=== PATIENT | male | born 1965 | race Caucasian/White ===

== ENCOUNTER 2017-04-06 16:46 | Inpatient (IN) | payer BC ==
[~2017-04-06] VITALS: Ht 167.6 cm; Wt 92.5 kg
[~2017-04-06 16:46] MED LIST: AMA1; AMA1 PO; BACDS PO; BG MC; GLU500 PO; LOP600 PO; LOR PO; MOT600 PO; MOT800 PO; ZES10 PO
[2017-04-06 17:53] LABS: BASOPHIL % 0.3 % (0-2); PLATELET COUNT 201 x10^3mcL (130-400); RED CELL DISTRIBUTION WIDTH 13.7 % (11.5-14.5)
[2017-04-06 17:59] LABS: CARBON DIOXIDE 27.3 mmol/L (21-32); CHLORIDE SERUM 101 mmol/L (98-107); CREATININE SERUM 0.8 mg/dL (0.7-1.3); GFR1 > 60 mL/min; GLUCOSE SERUM 137 mg/dL (74-106); POTASSIUM SERUM 3.6 mmol/L (3.5-5.1); SODIUM SERUM 137 mmol/L (136-145)
[2017-04-06 18:03] LABS: ALBUMIN 3.5 g/dL (3.4-5.0); ALKALINE PHOSPHATASE 78 U/L (46-116); ALT/SGPT 39 U/L (16-63); AST/SGOT 25 U/L (15-37); BILIRUBIN TOTAL 0.36 mg/dL (0.20-1.00)
[2017-04-06 20:23] LABS: AMYLASE 65 U/L (25-115); CHOLESTEROL 181 mg/dL (<200); LIPASE 117 IU/L (73-393); MAGNESIUM 1.9 mg/dL (1.8-2.4); PHOSPHOROUS 3.4 mg/dL (2.5-4.9)
[2017-04-06 20:24] LABS: CHOLESTEROL/HDL RATIO 8.6; HDL CHOLESTEROL 21 mg/dL (40-60); T3 TOTAL 1.2 ng/mL
[2017-04-06 20:25] LABS: TRIGLYCERIDES 671 mg/dL (<150)
[2017-04-06 20:27] LABS: FREE T4 0.99 ng/dL (0.76-1.46); FREE THYROXINE INDEX 2.5 ug/dL (1.4-4.5); T4(THYROXINE) 7.4 ug/dL (4.7-13.3)
[2017-04-06 21:14] LABS: AMPHETAMINE QUAL UR NONE DETECTED (NEG <=1000)
[2017-04-06 22:35] VITALS: BP 142/89
[2017-04-07 05:03] VITALS: BP 116/77
[2017-04-07 09:49] VITALS: BP 108/62
[2017-04-07 13:46] VITALS: BP 114/70
[2017-04-07 13:47] LABS: microscopic required? NO
[2017-04-07 14:10] LABS: urine erythrocyte NEGATIVE (NEGATIVE)
[2017-04-07 18:10] VITALS: BP 121/63
[2017-04-07 21:00] VITALS: BP 107/62
[2017-04-08 06:50] VITALS: BP 108/65
[2017-04-08 09:52] VITALS: BP 117/66
[2017-04-08 11:06] LABS: BASOPHIL % 0.4 % (0-2); PLATELET COUNT 180 x10^3mcL (130-400); RED CELL DISTRIBUTION WIDTH 13.5 % (11.5-14.5)
[2017-04-08 12:39] VITALS: BP 113/69
[2017-04-08 17:49] VITALS: BP 125/73
[2017-04-08 21:21] VITALS: BP 111/70
[2017-04-09 05:10] VITALS: BP 110/70
[2017-04-09 06:19] LABS: BASOPHIL % 0.4 % (0-2); PLATELET COUNT 185 x10^3mcL (130-400); RED CELL DISTRIBUTION WIDTH 13.4 % (11.5-14.5)
[2017-04-09 06:25] LABS: CALCIUM 8.7 mg/dL (8.5-10.1); CARBON DIOXIDE 28.8 mmol/L (21-32); CHLORIDE SERUM 104 mmol/L (98-107); GFR1 > 60 mL/min; GLUCOSE SERUM 106 mg/dL (74-106); MAGNESIUM 1.8 mg/dL (1.8-2.4); PHOSPHOROUS 4.9 mg/dL (2.5-4.9); POTASSIUM SERUM 3.5 mmol/L (3.5-5.1); SODIUM SERUM 141 mmol/L (136-145)
[2017-04-09 10:11] VITALS: BP 133/75
[2017-04-09 16:44] VITALS: BP 110/70
[2017-04-09 20:56] VITALS: BP 121/70
[2017-04-10 05:37] VITALS: BP 99/54
[2017-04-10 05:56] LABS: BASOPHIL % 0.3 % (0-2); PLATELET COUNT 183 x10^3mcL (130-400); RED CELL DISTRIBUTION WIDTH 13.9 % (11.5-14.5)
[2017-04-10 06:24] LABS: CALCIUM 8.6 mg/dL (8.5-10.1); CARBON DIOXIDE 26.2 mmol/L (21-32); CHLORIDE SERUM 103 mmol/L (98-107); CREATININE SERUM 0.9 mg/dL (0.7-1.3); GFR1 > 60 mL/min; GLUCOSE SERUM 174 mg/dL (74-106); POTASSIUM SERUM 4.1 mmol/L (3.5-5.1); SODIUM SERUM 138 mmol/L (136-145)
[2017-04-10 08:50] VITALS: BP 111/58
[2017-04-10] MEDS ORDERED: NOR10T PO (11:58)
[2017-04-10] MEDS ORDERED: COLACE100 MG PO (11:58)
[2017-04-10] MEDS ORDERED: LAC PO (11:59)
[2017-04-10] MEDS ORDERED: CLEOCIN HCL300 MG PO (11:59)
[2017-04-10] MEDS ORDERED: LEVOFLOXACIN750 M1 PO (12:21)
[2017-04-10 13:18] VITALS: BP 111/58
== END 2017-04-10 15:29 | disposition home or self-care (01) | DRG 579 ==
LOC: ED 16:46 → DU 20:37 → MU 20:37 → DU 21:53 → MU 04-08 11:24
PROVIDERS: Emergency Medicine; Family Medicine; Surgery; ADMIT Family Medicine
PROC: 0J980ZZ Drainage of Abdomen Subcutaneous Tissue and Fascia, Open Approach (ICD-10-PCS; principal; 2017-04-09 10:30)
DX: L02.211 Cutaneous abscess of abdominal wall (principal); G92 Toxic encephalopathy; D68.69 Other thrombophilia; E11.65 Type 2 diabetes mellitus with hyperglycemia; G89.29 Other chronic pain; M25.572 Pain in left ankle and joints of left foot; E78.2 Mixed hyperlipidemia; T41.3X5A Adverse effect of local anesthetics, initial encounter; L03.311 Cellulitis of abdominal wall; I10 Essential (primary) hypertension; Y92.531 Health care provider office as the place of occurrence of the external cause; Z88.4 Allergy status to anesthetic agent; Z68.32 Body mass index [BMI] 32.0-32.9, adult; Z87.891 Personal history of nicotine dependence; Z79.84 Long term (current) use of oral hypoglycemic drugs; Z79.899 Other long term (current) drug therapy
CPT/HCPCS: 82962; 83880; 84439; 97110-GP; 97116-GP; 97530-GP; J1885; J2175; J2250; J2270; J2405; J2704; J3010; J3490; J7030; J8597; Q0092